=== PATIENT | female | born 1985 | race Caucasian/White ===

== ENCOUNTER → 2024-05-30 10:12 | Outpatient (REF) | payer OTHER, SELFPAY ==
[2024-05-31 13:50] LABS: Syphilis/T. pallidum Ab Reflex Negative (Negative)
[2024-06-01 09:49] LABS: ANA, IgG Reflex to HEp-2 None Detected (None Detected)
[2024-06-01 16:15] LABS: SSA 52 (Ro)(ENA) Ab, IgG 2 AU/mL (0-40); SSA 60 (Ro)(ENA) Ab, IgG 0 AU/mL (0-40); SSB (La)(ENA) Ab, IgG 0 AU/mL (0-40)
[2024-06-01 18:26] LABS: ds-DNA Ab, IgG Reflex To Titer 4 IU (0-24)
[2024-06-02 08:53] LABS: Myeloperoxidase Antibody 0 AU/mL (0-19); Serine Protease-3, IgG 0 AU/mL (0-19)
== END ==
LOC: HWLAB 10:12
PROVIDERS: ATTENDING PHYSICIAN Psychiatry & Neurology Neurology; FAMILY PHYSICIAN Physician Assistant Medical
DX: G43.709 Chronic migraine without aura, not intractable, without status migrainosus (principal)
CPT/HCPCS: 36415; 83516; 86038; 86225; 86235; 86430; 86780

== ENCOUNTER → 2025-03-13 12:56 | Outpatient (REF) | payer OTHER, SELFPAY | LOC: RAD 12:56 | PROVIDERS: ATTENDING PHYSICIAN Physician Assistant Medical | DX: R63.4 Abnormal weight loss (principal) | CPT/HCPCS: 74177; Q9967 ==

== ENCOUNTER 2025-03-16 06:22 | Day surgery (SDC) | payer OTHER, SELFPAY | END 2025-03-16 15:13 | disposition home or self-care (01) | LOC: GI 06:22 | PROVIDERS: ATTENDING PHYSICIAN Internal Medicine Gastroenterology | DX: R19.4 Change in bowel habit (principal); R63.4 Abnormal weight loss; K64.8 Other hemorrhoids; K31.89 Other diseases of stomach and duodenum; K29.50 Unspecified chronic gastritis without bleeding | CPT/HCPCS: 45380; 43239; 88305; 88342 ==

== ENCOUNTER → 2025-06-14 18:04 | Outpatient (REF) | payer OTHER, SELFPAY | LOC: WDC 18:04 | PROVIDERS: ATTENDING PHYSICIAN Physician Assistant Medical | DX: Z00.00 Encounter for general adult medical examination without abnormal findings (principal); Z12.31 Encounter for screening mammogram for malignant neoplasm of breast | CPT/HCPCS: 77063; 77067 ==